=== PATIENT | male | born 1965 | race Caucasian/White ===

== ENCOUNTER 2023-10-18 06:19 | Inpatient (IN) | payer BC, SELFPAY ==
--- NOTE | 2023-09-14 11:14 | CM ---
Patient is scheduled for a R TK Revision on 10/18/23. Spoke with patient prior to surgery via telephone. Patient had a L TKR at in 2018. Reintroduced role of Orthopedic Navigator. Patient reports that he lives with his , daughter, her fiance
and her three children in a two story home. There are six steps to enter and a flight of steps to the second floor. He currently functions independently. He has no DME. He has had VN services through [facility]. PCP is Dr. Thomas Sidhu.
Discussed orthopedic program and post surgical plans. Reviewed anticipated length of stay and that goal is for him to return home at discharge. Also reviewed outpatient PT. Patient is in agreement with tentative plan and will go directly to
outpatient PT at [facility]. He will have support from his when he goes home.
Patient will complete online education.
Plan: Orthopedic Navigator will remain available to assist with the care of patient and will reassess discharge needs after surgery.
[2023-09-30 07:01] VITALS: BMI 26.5
[2023-09-30 08:59] LABS: Hematocrit 41.1 % (39.0-52.0); Hemoglobin 13.6 g/dL (13.0-18.0); Mean Corp Hgb Conc. 33.1 g/dL (33.0-37.0); Mean Corpuscular Volume 93.6 fL (80.0-94.0); Mean Platelet Volume 12.1 fL (7.4-10.4); Platelet Count 205 10^3/uL (130-400); Red Blood Cell Count 4.39 10^6/uL (4.70-6.10); Red Cell Dist. Width 13.2 % (11.5-14.5); White Blood Cell Count 9.1 10^3/uL (4.8-10.8)
[2023-09-30 09:37] LABS: ALT (SGPT) 18 U/L (0-50); AST (SGOT) 20 U/L (17-59); Albumin 4.2 g/dl (3.5-5.0); Alkaline Phosphatase 75 U/L (38-126); Blood Urea Nitrogen 24 mg/dl (9-20); Calcium 9.1 mg/dl (8.4-10.2); Carbon Dioxide 25 mmol/L (22-30); Chloride 106 mmol/L (98-107); Estimated Creatinine Clearance 101 ml/min; Glucose 132 mg/dl (70-99); Potassium 4.5 mmol/L (3.5-5.1); Sodium 137 mmol/L (135-145); Total Bilirubin 0.6 mg/dl (0.2-1.3); Total Protein 6.3 g/dl (6.3-8.2); eGFR > 60.00
[2023-09-30 15:16] VITALS: BMI 26.5
[2023-10-18] VITALS (16 sets, daily range): BP systolic 90–158; BP diastolic 53–91; BMI 26.5
[2023-10-18] MEDS: NORMOSOL-R 1000 IV ×2 (09:35→15:28)
[2023-10-18 09:36] LABS: Glucose - Point of Care 117 mg/dl (70-99)
[2023-10-18] MEDS: TYLENOL 650 MG PO ×3 (09:43→19:40)
[2023-10-18] MEDS: CELEBREX 200 MG PO (09:43)
[2023-10-18 12:09] LABS: Glucose - Point of Care 100 mg/dl (70-99)
[2023-10-18 14:40] LABS: Glucose - Point of Care 137 mg/dl (70-99)
[2023-10-18] MEDS: ROXICODONE 5 MG PO (15:28)
--- NOTE | 2023-10-18 16:50 | PTCARENOTE ---
Pt arrived to 2S in bed. Full assessment completed. B/L LEs with decreased movement, neurovascular assessment otherwise intact. R knee DSG C/D/I, yolanda wrap maintained. IVF infusing per order. Pt instructed to ring for assistance ambulating. Bed
locked and in the lowest position, safety maintained. Oriented to room and call mendiola.
[2023-10-18 17:53] LABS: Glucose - Point of Care 164 mg/dl (70-99)
[2023-10-18] MEDS: ASPIRIN 325 MG PO (18:26)
[2023-10-18] MEDS: GLUCOPHAGE 500 MG PO (18:26)
[2023-10-18] MEDS: ULTRAM 50 MG PO ×2 (18:26→21:32)
[2023-10-18] MEDS: ANCEF 5 IV (19:39)
[2023-10-18] MEDS: SENOKOT 17.1999999999999993 MG PO (19:40)
[2023-10-18] MEDS: COLACE 100 MG PO (19:40)
[2023-10-18] MEDS: TORADOL 15 MG IV (19:41)
[2023-10-18] MEDS: TOPROL XL 25 MG PO (21:31)
[2023-10-18] MEDS: NEURONTIN 300 MG PO (21:31)
[2023-10-18] MEDS: LIPITOR 80 MG PO (21:32)
[2023-10-18] MEDS: BACTROBAN 2% OINTMENT 1 APPLIC NASAL (21:32)
[2023-10-18] MEDS: PEPCID 40 MG PO (21:32)
[2023-10-18] MEDS: NOVOLOG FLEXPEN 4 UNITS SC (21:35)
[2023-10-18] MEDS: NOVOLOG FLEXPEN-MODERATE RESISTANCE 1 UNITS SC (21:35)
[2023-10-18 21:53] LABS: Glucose - Point of Care 154 mg/dl (70-99)
[2023-10-19] MEDS: TYLENOL PO ×2 (00:49→05:07)
[2023-10-19 03:00] VITALS: BP 100/58
[2023-10-19] MEDS: ANCEF 5 IV (04:35)
[2023-10-19 07:45] LABS: Glucose - Point of Care 128 mg/dl (70-99)
[2023-10-19 07:51] VITALS: BP 128/76
[2023-10-19] MEDS: NOVOLOG FLEXPEN-MODERATE RESISTANCE SC (07:52)
[2023-10-19] MEDS: NOVOLOG FLEXPEN SC (07:54)
[2023-10-19] MEDS: ULTRAM 50 MG PO (07:54)
[2023-10-19] MEDS: CELEBREX 200 MG PO (07:54)
[2023-10-19] MEDS: TYLENOL 650 MG PO (07:55)
[2023-10-19] MEDS: NEURONTIN 300 MG PO (07:55)
[2023-10-19] MEDS: SENOKOT PO (07:55)
[2023-10-19] MEDS: COLACE PO (07:55)
[2023-10-19] MEDS: ASPIRIN 325 MG PO (07:55)
[2023-10-19] MEDS: GLUCOPHAGE 500 MG PO (07:55)
[2023-10-19] MEDS: TORADOL 15 MG IV (07:56)
[2023-10-19] MEDS: BACTROBAN 2% OINTMENT 1 APPLIC NASAL (07:56)
--- NOTE | 2023-10-19 08:13 | W.PN.ORTHO ---
Today's Communication / Plan
-
d/c
Assessment
.
Distal Motor Intact: Yes
Dressing:
Clean, dry and intact.
Assessment:
Mechanical failure of R TKA 2018
CAD/hx OR-s/p PAUL-RCA, L Cx-05/2023-hold Brilinta until POD#6, then he will resume baby asa in place of 325mg dose
Plan
.
Surgery / Date: R TKA Revision Dr. Samaniego 10/18/23
DVT Prophylaxis: Aspirin
Activity:
Out of bed.
PT/OT
Discharge Plan: Home w/ Outpatient PT
Subjective
.
.:
Patient resting comfortably.
Vital Signs and Labs
.
Vital Signs and Labs:
Lab Results
09/30/23 06:50
09/30/23 06:50
Temp Pulse Resp BP Pulse Ox
98.7 F 60 19 128/76 99
10/19/23 07:51 10/19/23 07:51 10/19/23 07:51 10/19/23 07:51 10/19/23 07:51
Non-invasive Hgb result: 11.3
Physical Exam
-
HEENT: No pallor, cyanosis, or jaundice. Throat clear.
EXTREMITIES: strength equal, no calf pain with palpation
CONSTRUCTION ADMINISTRATIVE ASSISTANT: AOx3. No focal deficits. chief electrician grossly intact
--- NOTE | 2023-10-19 08:27 | CM ---
Addendum entered by Mariangel Hurtado 10/19/23 11:13:
Patient did well in therapy. He has no concerns about going home.
Original Note:
Reviewed chart and held rounds with PT, OT and nursing. Patient admitted as planned for R TK Revision. Met with patient at bedside. Confirmed information previously obtained for assessment. Also discussed discharge plans. The plan is for patient to
return home at discharge. He will have support from his when he goes home. Patient will go directly to outpatient PT and will come to . He has an appointment scheduled for Wednesday, 10/20.
Patient has a rolling walker and cane.
He will use [facility] pharmacy for discharge prescriptions.
Discharge plans were reviewed with patient's on 10/18.
--- NOTE | 2023-10-19 08:27 | W.DS.TRANS ---
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
-
Discharge Instructions:
Sleep Apnea Risk Intermediate
Discharge Diagnosis/Procedures R TKA Revision Dr. Samaniego 10/18/23
Diet Diabetic, Carb Controlled
Activity As tolerated,With Walker
Driving Restrictions No driving
Bathing Restrictions OK to Shower
Other Services PT
Instructions:
Stand-Alone Forms: Total Hip/Knee Replacement D/C
Changes to Home Medications: Yes
Discharge Medications:
DC Medications w/original date entered in [employer]
aspirin 81 mg tablet,delayed release 81 mg PO DAILY Blood clot prevention/tx #30 tabs 06/10/23
metformin 500 mg tablet 500 mg PO BID #60 tabs 06/10/23
ticagrelor 90 mg tablet (Brilinta) 90 mg PO BID #60 tabs 06/10/23
atorvastatin 80 mg tablet 80 mg PO HS High Cholesterol 07/10/23
metoprolol succinate 25 mg tablet,extended release 24 hr 25 mg PO HS Blood Pressure 07/10/23
losartan 25 mg tablet 25 mg PO HS 09/24/23
mupirocin 2 % topical ointment 1 applic topical BID infection prevention #1 tube 09/30/23
Saccharomyces boulardii 250 mg capsule (Florastor) 250 mg PO BID #1 cap 10/19/23
acetaminophen 325 mg capsule (Tylenol) 650 mg PO QID #2 caps 10/19/23
aspirin 325 mg tablet 325 mg PO DAILY blood clot prevention #5 tabs 10/19/23
cefadroxil 500 mg capsule 500 mg PO BID infection prevention #14 caps 10/19/23
docusate sodium 100 mg capsule (Colace) 100 mg PO BID stool softner #1 cap 10/19/23
famotidine 20 mg tablet 20 mg PO HS GI prophylaxis #30 tabs 10/19/23
gabapentin 300 mg capsule 300 mg PO BID sleep/pain #20 caps 10/19/23
ibuprofen 400 mg tablet 400 mg PO BID Anti-inflammatory #1 tab 10/19/23
magnesium hydroxide 400 mg/5 mL oral suspension (Milk of Magnesia) 30 ml PO HS PRN Constipation #1 mL 10/19/23
oxycodone 5 mg tablet 5 - 10 mg PO Q6HPRN PRN 1 tab moderate-2 tabs severe pain #30 tabs 10/19/23
sennosides 8.6 mg tablet (Senokot) 17.2 mg PO BID laxative #2 tabs 10/19/23
tramadol 50 mg tablet 50 mg PO QID Ongoing therapy #30 tabs 10/19/23
Home Medication Changes
cefadroxil 500 mg capsule 500 mg PO BID infection prevention #14 caps 10/19/23�
famotidine 20 mg tablet 20 mg PO HS GI prophylaxis #30 tabs 10/19/23�
gabapentin 300 mg capsule 300 mg PO BID sleep/pain #20 caps 10/19/23�
oxycodone 5 mg tablet 5 - 10 mg PO Q6HPRN PRN 1 tab moderate-2 tabs severe pain #30 tabs 10/19/23�
tramadol 50 mg tablet 50 mg PO QID Ongoing therapy #30 tabs 10/19/23�
Pending Results: No
[2023-10-19 10:52] VITALS: PULSE 60; O2SAT 99
[2023-10-19 11:10] VITALS: BP 129/72; PULSE 62; O2SAT 99
== END 2023-10-19 12:02 | disposition home or self-care (01) | DRG 468 ==
LOC: 2 SOUTH 06:19
PROVIDERS: ADMITTING PHYSICIAN Specialist; FAMILY PHYSICIAN Internal Medicine; REFERRING PHYSICIAN Physician Assistant Medical
PROC: 0SRD0J9 Replacement of Left Knee Joint with Synthetic Substitute, Cemented, Open Approach (ICD-10-PCS; 2023-10-18)
PROC: 0SPD0JZ Removal of Synthetic Substitute from Left Knee Joint, Open Approach (ICD-10-PCS; 2023-10-18)
DX: T84.092A Other mechanical complication of internal right knee prosthesis, initial encounter (principal); Y79.2 Prosthetic and other implants, materials and accessory orthopedic devices associated with adverse incidents; I25.10 Atherosclerotic heart disease of native coronary artery without angina pectoris; E11.9 Type 2 diabetes mellitus without complications; I10 Essential (primary) hypertension; E78.5 Hyperlipidemia, unspecified; Z96.652 Presence of left artificial knee joint
CPT/HCPCS: 36415; 73560; 80053; 82962; 83036; 85027; 86850; 86900; 86901; 87070; 97110; 97116; 97162; 97166; C1713; C1762; C1776

== ENCOUNTER 2023-10-21 14:04 | Outpatient (RCR) | payer BC, SELFPAY | END 2023-10-21 23:59 | disposition home or self-care (01) | LOC: RPT 14:04 | PROVIDERS: ATTENDING PHYSICIAN Specialist; FAMILY PHYSICIAN Internal Medicine | DX: Z47.1 Aftercare following joint replacement surgery (principal); Z96.651 Presence of right artificial knee joint; Z73.6 Limitation of activities due to disability | CPT/HCPCS: 97010; 97110; 97162 ==

== ENCOUNTER 2023-10-25 21:36 | Emergency (ER) | payer BC, SELFPAY ==
[2023-10-25 21:37] VITALS: BP 144/86
--- NOTE | 2023-10-26 00:45 | ED.GENMED ---
History of Present Illness
<RADHA Goddard - Last Filed: 10/26/23 02:00>
General
Chief Complaint: DVT/Possible Blood Clot
Source: patient and spouse
Exam Limitations: none
Time Seen by Provider: 10/26/23 00:34
Nursing documentation reviewed up to this point in time: agreed with
Travel History
Have you had any contact with someone who has COVID-19?: No
Do you have any symptoms of coronavirus? Fever > 100 degrees, chills, cough, shortness of breath, sore throat, loss of taste or smell, muscle aches, or headache?: No
History of Present Illness
History of Present Illness:
This is a 58 year old male, with a PMH of CAD, HTN, HLD, and NC, who presents to the ED c/o increasing right lower calf swelling x 2 days. Pt states he had a revision of a right knee replacement 1 week ago. He states his knee has been tender since
the surgery but he has had increasing right ankle pain and right calf swelling over the past 2 days. He was concerned of having a blood clot which is what prompted him to come in. He states he has been taking Gabapentin, tramadol, and oxycodone for
the pain which was helping to control it up until today. His last dose was almost 4 hours ago. He denies any CP, SOB, or pleuritic CP. States he has also been nauseous and had a AGUILAR.
Past History
<RADHA Goddard - Last Filed: 10/26/23 02:00>
Past History
ED Past Medical History: CAD, HTN, NIDDM, NC and Psychiatric
ED Past Surgical History: Orthopedic and Other
Social History
Tobacco: Non-smoker
Alcohol: None
Drug: None
Personal:
Living: with family
Employment: Employed
Review of Systems
<RADHA Goddard - Last Filed: 10/26/23 02:00>
Review of Systems
Allergies reviewed?: Yes
All Other Systems: ROS reviewed and negative except as documented in HPI and ROS
Constitutional: Reports no symptoms
EENT: Reports no symptoms
Respiratory: Reports no symptoms; Denies trouble breathing
Cardiac: Reports no symptoms; Denies chest pain
ABD/GI: Reports nausea
: Reports no symptoms
Musculoskeletal: Reports joint pain (right knee, right ankle), joint swelling (right knee) and muscle pain (calf)
Skin: Reports other (bruising on right thigh and right ankle)
Neurological: Reports headache
Psychiatric: Reports no symptoms
Phy Exam
<RADHA Goddard - Last Filed: 10/26/23 02:00>
General Physical Exam
General Presentation: no apparent distress
General age: appears stated age
General Skin: warm and dry
General Habitus: normal
General Mental: alert
General Hydration: appears well hydrated
ENT Exam
ENT Exam: normocephalic and swallowing well
Cardiovascular Exam
Cardiovascular Exam: regular rate/rhythm, no edema, no murmur and normal peripheral pulses
Pulmonary Exam
Pulmonary Exam: lungs clear, no respiratory distress, no rales, no crackles, no rhonchi, no wheezing and no cough
Neurological Exam
Neurological Exam: alert and oriented x3
Musculoskeletal Exam
Musculoskeletal Exam: other (limited ROM right leg. ecchymoses noted along right medial thigh and right medial ankle. Swelling and edema along right calf. Incision appears to be healing well - there is no drainage, erythema or purulence noted.)
Skin Exam
Skin Exam: warm/dry
Psychiatric Exam
Psychiatric Exam: normal mood/affect
Course
<RADHA Goddard - Last Filed: 10/26/23 02:00>
Orders/Labs/Results
Orders:
Orders
10/26/23 00:00
US Periph Venous LOWER Ext RT Urgent
Reason For Exam: POST OP LOWER POST LEG PAIN, SWELLING
Vital Signs
Initial and Last Documented VS:
Initial Vital Signs
Temp Pulse Resp BP Pulse Ox
98 F 76 22 144/86 98
10/25/23 21:37 10/25/23 21:37 10/25/23 21:37 10/25/23 21:37 10/25/23 21:37
Last Documented Vital Signs
Temp Pulse Resp BP Pulse Ox
98 F 80 18 115/82 98
10/25/23 21:37 10/26/23 02:12 10/26/23 02:12 10/26/23 02:12 10/26/23 02:12
<Markos Post DO - Last Filed: 10/26/23 02:20>
Orders/Labs/Results
Orders:
Orders
10/26/23 00:00
US Periph Venous LOWER Ext RT Urgent
Reason For Exam: POST OP LOWER POST LEG PAIN, SWELLING
Vital Signs
Initial and Last Documented VS:
Initial Vital Signs
Temp Pulse Resp BP Pulse Ox
98 F 76 22 144/86 98
10/25/23 21:37 10/25/23 21:37 10/25/23 21:37 10/25/23 21:37 10/25/23 21:37
Last Documented Vital Signs
Temp Pulse Resp BP Pulse Ox
98 F 80 18 115/82 98
10/25/23 21:37 10/26/23 02:12 10/26/23 02:12 10/26/23 02:12 10/26/23 02:12
<Markos Post DO - Last Filed: 10/26/23 02:20>
MDM/Problems Addressed
MDM/Problems Addressed:
Postoperative pain, postoperative swelling, ecchymosis
<Markos Post DO - Last Filed: 10/26/23 02:20>
*Pulse Oximetry
Patient hypoxic: no
*Critical Care Note
Total Time (30-74mins, 75-104mins- exclusive of procedures): Not Applicable
Data Reviewed
Source: patient
Further Testing Considered But Not Given:
Consider labs but no signs of infection
ED Attending Note
<RADHA Goddard - Last Filed: 10/26/23 02:00>
-
Portions of this chart may have been created with voice recognition software.� Occasional wrong word or��sound alike� substitutions may have occurred due to the inherent limitations of voice recognition software.
<Markos Post DO - Last Filed: 10/26/23 02:20>
ED Attending Note
Patient seen and examined by attending physician: Yes
I performed the substantive portion of visit, reviewed & personally made and approve the management plan that is documented in note by myself or JULIUS.: Yes
ED Attending Note:
Patient seen and examined with student. 50-year-old male who is postop 1 week from knee replacement surgery who presents with swelling. Concerned with DVT and he was not sure if it was just normal expected swelling or not. No fevers or redness.
No drainage. Exam: Ecchymosis that is expected stage of healing with moderate swelling throughout the right leg. Midline incision is intact without redness or drainage. Normal distal perfusion. Assessment and plan: DVT study negative. No
evidence of infection. Okay for discharge
Discharge Plan
Departure
Patient Disposition: Home (Routine Discharge)
Date of Disposition: 10/26/23
Time of Disposition: 01:56
Patient with high blood pressure during this ER visit?: Yes
Condition: Good
Discharge Problem:
Postoperative edema
Instructions: Deep Vein Thrombosis (Blood Clots in the Legs) (DC)
Prescriptions:
No Action
aspirin 81 mg Tablet,Delayed Release (Dr/Ec)
81 mg PO DAILY Qty: 30 5RF
Hold Instructions: Resume on 10/24/23.
metformin 500 mg tablet
500 mg PO BID Qty: 60 3RF
metoprolol succinate 25 mg tablet extended release 24 hr
25 mg PO HS
atorvastatin 80 mg tablet
80 mg PO HS
losartan 25 mg Tablet
25 mg PO HS
mupirocin 2 % ointment
1 applic topical BID Qty: 1 0RF
aspirin 325 mg tablet
325 mg PO DAILY Qty: 5 0RF
Rx Instructions:
Take with food--*LAST DOSE 10/23/23-THEN DECREASE TO 81MG DAILY
cefadroxil 500 mg capsule
500 mg PO BID Qty: 14 0RF
Rx Instructions:
*Take w/ food
*Take w/ probiotic
*POST-OP USE
famotidine 20 mg tablet
20 mg PO HS Qty: 30 0RF
Rx Instructions:
post-op
docusate sodium [Colace] 100 mg capsule
100 mg PO BID Qty: 1 0RF
gabapentin 300 mg capsule
300 mg PO BID Qty: 20 0RF
Saccharomyces boulardii [Florastor] 250 mg capsule
250 mg PO BID Qty: 1 0RF
ibuprofen 400 mg tablet
400 mg PO BID Qty: 1 0RF
Rx Instructions:
DISCONTINUE OWHEN BRILINTA IS RESUMED
sennosides [Senokot] 8.6 mg tablet
17.2 mg PO BID Qty: 2 0RF
magnesium hydroxide [Milk of Magnesia] 400 mg/5 mL suspension
30 ml PO HS PRN (Reason: Constipation) Qty: 1 0RF
oxycodone 5 mg tablet
5 - 10 mg PO Q6HPRN PRN (Reason: 1 tab moderate-2 tabs severe pain) Qty: 30 0RF
Rx Instructions:
Dx surgery
ongoing therapy
Post-op use
tramadol 50 mg tablet
50 mg PO QID Qty: 30 0RF
Rx Instructions:
Dx Orthopedic surgery
post-op
acetaminophen [Tylenol] 325 mg capsule
650 mg PO QID Qty: 2 0RF
Brilinta 90 mg tablet
90 mg PO BID
Referrals:
Thomas Sidhu I., DO [Family Provider] -
Activity Restrictions/Additional Instructions:
Continue post operative medications as prescribed. Follow up with orthopedic surgeon as recommended. If symptoms do not get better or seem to be getting worse, follow up sooner. If you develop any chest pain, shortness of breath, pain with
breathing, fever, chills, purulent drainage from the surgical site, increasing pain not controlled with medications, increasing calf swelling or pain, or any signs of infection, return to the ED immediately.
Interventions
Interventions:
*Risk Screen - Suicide Last Done: 10/25/23 21:37
*Neglect/Abuse Screening Last Done: 10/25/23 21:37
[2023-10-26 02:12] VITALS: BP 115/82
== END 2023-10-26 02:14 | disposition home or self-care (01) ==
LOC: EMR 21:36
PROVIDERS: EMERGENCY PHYSICIAN Emergency Medicine; FAMILY PHYSICIAN Internal Medicine; OTHER PHYSICIAN Internal Medicine Cardiovascular Disease; OTHER PHYSICIAN Specialist
DX: L76.32 Postprocedural hematoma of skin and subcutaneous tissue following other procedure (principal); I10 Essential (primary) hypertension
CPT/HCPCS: 99284; 93971

== ENCOUNTER 2023-11-19 09:59 | Outpatient (RCR) | payer BC, SELFPAY | END 2023-11-19 23:59 | disposition home or self-care (01) | LOC: RPT 09:59 | PROVIDERS: ATTENDING PHYSICIAN Specialist; FAMILY PHYSICIAN Internal Medicine | DX: Z47.1 Aftercare following joint replacement surgery (principal); Z73.6 Limitation of activities due to disability; R26.2 Difficulty in walking, not elsewhere classified; M62.81 Muscle weakness (generalized); M25.561 Pain in right knee; Z96.651 Presence of right artificial knee joint | CPT/HCPCS: 97010; 97110; 97112; 97530 ==

== ENCOUNTER 2023-12-20 10:05 | Outpatient (RCR) | payer BC, SELFPAY | END 2023-12-20 23:59 | disposition home or self-care (01) | LOC: RPT 10:05 | PROVIDERS: ATTENDING PHYSICIAN Specialist; FAMILY PHYSICIAN Internal Medicine | DX: Z47.1 Aftercare following joint replacement surgery (principal); Z73.6 Limitation of activities due to disability; R26.2 Difficulty in walking, not elsewhere classified; M62.81 Muscle weakness (generalized); M25.561 Pain in right knee; Z96.651 Presence of right artificial knee joint | CPT/HCPCS: 97010; 97110; 97140 ==

== ENCOUNTER 2024-01-07 10:29 | Outpatient (RCR) | payer BC, SELFPAY | END 2024-01-18 08:27 | disposition home or self-care (01) | LOC: RPT 10:29 | PROVIDERS: ATTENDING PHYSICIAN Specialist; FAMILY PHYSICIAN Internal Medicine | DX: Z47.1 Aftercare following joint replacement surgery (principal); Z73.6 Limitation of activities due to disability; Z96.651 Presence of right artificial knee joint | CPT/HCPCS: 97010; 97110 ==

== ENCOUNTER → 2024-02-01 10:42 | Outpatient (REF) | payer BC, SELFPAY | LOC: REG 10:42 | PROVIDERS: ATTENDING PHYSICIAN Internal Medicine | DX: M25.531 Pain in right wrist (principal) | CPT/HCPCS: 73110 ==

== ENCOUNTER → 2024-11-24 09:31 | Outpatient (REF) | payer BC, SELFPAY | LOC: RAD 09:31 | PROVIDERS: ATTENDING PHYSICIAN Nurse Practitioner Family | DX: M25.551 Pain in right hip (principal) | CPT/HCPCS: 73523 ==